=== PATIENT | female | born 1930 | race Caucasian/White ===

== ENCOUNTER → 2016-12-23 | Outpatient (CLI) | payer OTHER | LOC: GIMAGING 13:28 | PROVIDERS: ATTEND Internal Medicine | DX: S52.612A Displaced fracture of left ulna styloid process, initial encounter for closed fracture (principal); E03.9 Hypothyroidism, unspecified; R07.81 Pleurodynia; W19.XXXA Unspecified fall, initial encounter | CPT/HCPCS: 71100-PO; 73110-PO ==